=== PATIENT | male | born 1985 | race Caucasian/White ===

== ENCOUNTER 2023-05-22 15:09 | Emergency (ER) | payer SELFPAY ==
--- NOTE | 2023-05-22 15:17 | ERPHSYRPT ---
- History of Present Illness Time Seen by Provider: 05/22/23 15:16 Source: patient, family Exam Limitations: no limitations Physician History: This is a right-handed 37-year-old white male patient who was using a knife to cut a wire when it slipped causing him to have a 1.5 cm superficial flap laceration ulnar side distal laceration. Patient states that his tetanus status is up-to-date. Occurred: just prior to arrival Method of Injury: other (Accidentally cut himself with a knife) Severity of Pain-Max: mild Severity of Pain-Current: mild Extremities Pain Location: 2nd finger: left (Distal ulnar side superficial flap laceration) Modifying Factors: Improves With: movement Associated Symptoms: none Allergies/Adverse Reactions: Penicillins Allergy (Verified 05/22/23 15:13) Travel Risk - International Travel Have you traveled outside of the country in past 3 weeks: No - Coronavirus Screening Are you exhibiting any of the following symptoms?: No Close contact with a COVID-19 positive Pt in past 14-21 Days: No - Review of Systems Constitutional: No Symptoms Eyes: No Symptoms Ears, Nose, & Throat: No Symptoms Respiratory: No Symptoms Cardiac: No Symptoms Abdominal/Gastrointestinal: No Symptoms Genitourinary Symptoms: No Symptoms Musculoskeletal: No Symptoms Skin: Other (Superficial distal ulnar side left second digit flap laceration) Neurological: No Symptoms Psychological: No Symptoms Endocrine: No Symptoms Hematologic/Lymphatic: No Symptoms Immunological/Allergic: No Symptoms All Other Systems: Reviewed and Negative - Past Medical History Pertinent Past Medical History: No - Past Surgical History Past Surgical History: No - Nursing Vital Signs Nursing Vital Signs: Initial Vital Signs Temperature 97.5 F 05/22/23 15:14 Pulse Rate 90 05/22/23 15:14 Respiratory Rate 18 05/22/23 15:14 Blood Pressure 131/82 05/22/23 15:14 O2 Sat by Pulse Oximetry 97 05/22/23 15:14 Pain Scale Pain Intensity 0 - Physical Exam General Appearance: no apparent distress, alert Eyes, Ears, Nose, Throat Exam: normal ENT inspection, moist mucous membranes Neck Exam: normal inspection, non-tender, supple, full range of motion Cardiovascular/Respiratory Exam: chest non-tender, no respiratory distress Abdominal Exam: non-tender Back Exam: normal inspection, normal range of motion, No CVA tenderness, No vertebral tenderness Shoulder Exam: normal inspection, non-tender, no evidence of injury, normal ROM Elbow/Forearm Exam: normal inspection, non-tender, no evidence of injury, normal ROM Wrist Exam: normal inspection, non-tender, no evidence of injury, normal ROM Hand Exam: normal ROM, laceration (Superficial, distal left index finger flap laceration with mild oozing from the skin. Neurovascularly intact, tendons intact) Neuro/Tendon Exam: normal sensation, normal motor functions, normal tendon functions, responds to pain, no evidence tendon injury Mental Status Exam: alert, oriented x 3, cooperative Skin Exam: laceration (Laceration second digit left hand. See above hand exam section for description) SpO2 Interpretation: normal O2 Delivery: Room Air Procedures - Laceration/Wound Repair Left Distal Finger Time of Procedure: 15:25 Wound Location: Left, hand Wound Length (cm): 1.5 Wound's Depth, Shape: superficial, linear, flap Wound Explored: clean (Wound explored to the base in a bloodless field. No foreign body noted) Irrigated: Yes Hibiclens Prep: Yes Wound Repaired With: Steri-strips, Dermabond Progress: 05/22/23 15:38 Patient tolerated the procedure well. After laceration repair, a pressure dressing and finger splint was placed. - Course Nursing assessment & vital signs reviewed: Yes Ordered Tests: Medication Summary Discontinued Medications Generic Name Dose Route Start Last Admin Trade Name Liam PRN Reason Stop Dose Admin Cephalexin HCl 500 mg 05/22/23 15:32 Cephalexin Mh500 Mg Capsule PO 05/22/23 15:33 STAT ONE - Progress Progress: improved, re-examined Progress Note: 05/22/23 15:38 This patient's medical issue is 1 of low complexity. The level of complexity and the workup performed is based on review of the patient's past medical history, review of the patient's medication list, history of present illness and physical findings on examination. No laboratory radiographic studies are necessary. Patient's tetanus status is up-to-date so this is not necessary to provide the patient with an additional injection of Adacel Counseled pt/family regarding: diagnosis Medical Desision Making - Independent Historian Additional History obtained from: Spouse - Diagnostic Testing Diagnostic test were ordered, analyzed, and reviewed by me: No - Risk of complications Minimal Risk: Minimal risk of morbidity - Departure Departure Disposition: Home Clinical Impression: Laceration of left index finger Condition: Stable Critical Care Time: No Referrals: DOCTOR,NO FAMILY [Primary Care Provider] - Follow up/PCP as directed Additional Instructions: Keep the left finger and laceration repair site in the pressure dressing and in the finger splint. On the morning of 05/24/2023, you may remove the finger splint and the pressure dressing but leave the Steri-Strips in place until they fall off on their own in the next 5 to 7 days. On the morning of 05/24/2023, you may rinse the site off with soap and water. Do not rub. You may blot dry or use a hairmasters manager to dry the site. Take your antibiotics as prescribed. You may trim the Steri-Strips periodically as they curl up. Do not pull them off. Prescriptions: Cephalexin Mh 500 mg [Keflex 500 mg] 500 mg PO TID #15 cap
[2023-05-22 15:22] VITALS: TEMP 97.5; O2SAT 97
[2023-05-22] MEDS ORDERED: KEFLEX 500 MG ONE (15:35)
[2023-05-22] MEDS: KEFLEX 500 MG PO ONE (15:37)
[2023-05-22 15:57] VITALS: BP 104/75; PULSE 80; RESP 16
== END 2023-05-22 15:57 | disposition home or self-care (01) ==
LOC: ED 15:09
DX: S61.211A Laceration without foreign body of left index finger without damage to nail, initial encounter (principal); W26.0XXA Contact with knife, initial encounter
CPT/HCPCS: 12001; 99281; A9270-GY

== ENCOUNTER 2023-06-24 23:29 | Emergency (ER) | payer SELFPAY ==
[2023-06-24 23:41] VITALS: TEMP 97.2; O2SAT 99
--- NOTE | 2023-06-25 00:10 | ERPHSYRPT ---
- History of Present Illness Time Seen by Provider: 06/24/23 23:38 Source: patient Exam Limitations: no limitations Patient Subjective Stated Complaint: Headache Triage Nursing Assessment: Patient ambulated back to ED and transferred self to bed. Patient A+O X 3. Patient's skin pink, warm and dry. Patient complains of headache on and off for 2 weeks. Patient states his head hurts in the top and back of head 10/10. Patient denies any recent trauma or injuries. Patient denies N/V or dizziness. Patient is occasionally light sensitive. Patient states he has bad teeth and it may be that. Right side of face noted to be swollen. Patient has no dental pain. Physician History: 37 years old healthy male presented in the ER with almost 2 weeks history of off-and-on headache. Patient reports moderate to severe sharp headache with no significant aggravating or relieving factors, mostly frontal but sometimes occipital with no focal numbness tingling or weakness. Denies any visual disturbance or difficulty speech. Patient denies any neck pain, fever or chills. No history of headaches in the past. Partial relief with taking Tylenol or ibuprofen at home. Last intake of ibuprofen was almost 6 hours ago and currently rates 10/10 intensity frontal headache. Allergies/Adverse Reactions: Penicillins Allergy (Verified 06/24/23 23:33) Hx Tetanus, Diphtheria Vaccination/Date Given: Yes Hx Influenza Vaccination/Date Given: No Hx Pneumococcal Vaccination/Date Given: No Immunizations Up to Date: Yes Travel Risk - International Travel Have you traveled outside of the country in past 3 weeks: No - Emerging Infectious Disease Are you exhibiting symptoms associated with any current EIDs: No - Review of Systems Constitutional: No Symptoms Eyes: No Symptoms Ears, Nose, & Throat: No Symptoms Respiratory: No Symptoms Cardiac: No Symptoms Abdominal/Gastrointestinal: No Symptoms Genitourinary Symptoms: No Symptoms Musculoskeletal: No Symptoms Neurological: Headache Psychological: No Symptoms Endocrine: No Symptoms Hematologic/Lymphatic: No Symptoms Immunological/Allergic: No Symptoms - Past Medical History Pertinent Past Medical History: No Neurological History: No Pertinent History ENT History: No Pertinent History Cardiac History: No Pertinent History Respiratory History: Asthma Endocrine Medical History: No Pertinent History Musculoskeletal History: No Pertinent History GI Medical History: No Pertinent History History: No Pertinent History Psycho-Social History: No Pertinent History Male Reproductive Disorders: No Pertinent History - Past Surgical History Past Surgical History: No Neuro Surgical History: No Pertinent History Cardiac: No Pertinent History Respiratory: No Pertinent History Gastrointestinal: No Pertinent History Genitourinary: No Pertinent History Musculoskeletal: No Pertinent History Male Surgical History: No Pertinent History - Social History Smoking Status: Current every day smoker How long have you smoked: years Exposure to second hand smoke: No Drug Use: none Patient Lives Alone: No - Nursing Vital Signs Nursing Vital Signs: Initial Vital Signs Temperature 97.2 F 06/24/23 23:33 Pulse Rate 70 06/24/23 23:33 Respiratory Rate 20 06/24/23 23:33 Blood Pressure 130/86 06/24/23 23:33 O2 Sat by Pulse Oximetry 99 06/24/23 23:33 Pain Scale Pain Intensity 10 - Physical Exam General Appearance: no apparent distress, alert Eye Exam: PERRL/EOMI Ears, Nose, Throat Exam: normal ENT inspection, TMs normal, pharynx normal, moist mucous membranes Neck Exam: normal inspection, non-tender, supple, full range of motion, No meningismus Respiratory Exam: normal breath sounds, lungs clear, No chest tenderness Cardiovascular Exam: regular rate/rhythm, normal heart sounds Gastrointestinal/Abdominal Exam: soft, No tenderness Extremity Exam: normal inspection Mental Status Exam: alert, oriented x 3, cooperative manufacturing systems engineer Exam: normal hearing, normal speech, PERRL Coordination/Gait Exam: normal finger to nose, normal gait, normal cerebellar function, negative Romberg's sign Motor/Sensory Exam: no motor deficit, no sensory deficit, no pronator drift, negative Babinski's sign DTR Exam: bicep (R): 2+, bicep (L): 2+, knee (R): 2+, knee (L): 2+ Skin Exam: normal color SpO2 Interpretation: normal SpO2: 99 O2 Delivery: Room Air Ordered Tests: Medication Summary Discontinued Medications Generic Name Dose Route Start Last Admin Trade Name Freq PRN Reason Stop Dose Admin Acetaminophen 975 mg 06/24/23 23:58 06/25/23 00:19 Acetaminophen 325 Mg Tablet PO 06/24/23 23:59 975 mg STAT ONE Administration Acetaminophen Confirm 06/25/23 00:16 Acetaminophen 325 Mg Tablet Administered 06/25/23 00:17 Dose 975 mg .ROUTE .STK-MED ONE Diphenhydramine HCl 50 mg 06/24/23 23:58 06/25/23 00:20 Diphenhydramine Hcl 50 Mg/Ml Vial IM 06/24/23 23:59 50 mg STAT ONE Administration Diphenhydramine HCl Confirm 06/25/23 00:15 Diphenhydramine Hcl 50 Mg/Ml Vial Administered 06/25/23 00:16 Dose 50 mg .ROUTE .STK-MED ONE Ketorolac Tromethamine 30 mg 06/24/23 23:58 06/25/23 00:19 Ketorolac Tromethamine 30 Mg/Ml Inj IM 06/24/23 23:59 30 mg STAT ONE Administration Ketorolac Tromethamine Confirm 06/25/23 00:15 Ketorolac Tromethamine 30 Mg/Ml Inj Administered 06/25/23 00:16 Dose 30 mg .ROUTE .STK-MED ONE Metoclopramide HCl 10 mg 06/24/23 23:58 06/25/23 00:19 Metoclopramide Hcl 10 Mg/2 Ml Vial IM 06/24/23 23:59 10 mg STAT ONE Administration Metoclopramide HCl Confirm 06/25/23 00:16 Metoclopramide Hcl 10 Mg/2 Ml Vial Administered 06/25/23 00:17 Dose 10 mg .ROUTE .STK-MED ONE - Progress Progress: improved, re-examined Air Movement: good Progress Note: 06/25/23 01:06 37-year-old is evaluated for headache off and on for 2 weeks with no previous history of migraines. Patient has nonfocal neuroexam throughout stay in the ER. He has no signs of meningismus. Given Toradol Reglan and Benadryl, on reevaluation his headache is resolved. I have also obtained CT head with this new onset headache for 2 weeks and is negative for any acute intra-cranial findings. Patient remained symptom-free. He might have a new onset migraine. Patient does not have any new triggering factor which is causing him to have headaches. I have recommended outpatient follow-up with PCP and may need referral for neurology and to take Tylenol/ibuprofen as needed. Discussed signs symptoms of worsening needing return to ER which she seems understanding. Stable for discharge. Blood Culture(s) Obtained: No Antibiotics given: No Counseled pt/family regarding: diagnosis, need for follow-up, rad results Medical Desision Making - Risk of complications The pt has a mod risk of morbidity or mortality based on: Need for prescription drug management - Departure Departure Disposition: Home Clinical Impression: Headache Condition: Stable Critical Care Time: No Referrals: DOCTOR,NO FAMILY [Primary Care Provider] - Follow up/PCP as directed KOREY URRUTIA MD [ACTIVE STAFF] - Follow up with PCP 1 day (Call for appointment for reevaluation) Instructions: Headache, Adult (DC) Additional Instructions: Take Tylenol/ibuprofen as needed for pain. Follow-up with primary care for reevaluation and may need referral for neurology for further evaluation if continues to have headaches. Return to ER for intractable headache, pain in the neck/difficulty movements of neck, numbness tingling focal weakness or visual disturbance or if develop fever chills etc. Prescriptions: Ibuprofen 600 mg PO Q6HPRN PRN 10 Days #20 tablet PRN Reason: Pain
[2023-06-25] MEDS ORDERED: TORAdol 30 mg Injection ONE (00:15)
[2023-06-25] MEDS ORDERED: BENADRYL 50 MG/ML ONE (00:15)
[2023-06-25] MEDS ORDERED: Reglan 10 MG/2 ML ONE (00:16)
[2023-06-25] MEDS ORDERED: TYLENOL 325 MG ONE (00:16)
[2023-06-25] MEDS: TYLENOL 325 MG PO ONE (00:19)
[2023-06-25] MEDS: Reglan 10 MG/2 ML IM ONE (00:19)
[2023-06-25] MEDS: TORAdol 30 mg Injection IM ONE (00:19)
[2023-06-25] MEDS: BENADRYL 50 MG/ML IM ONE (00:20)
--- NOTE | 2023-06-25 01:00 | XRAY ---
CLINICAL HISTORY: headache COMPARISON: None. TECHNIQUE: Axial noncontrast CT scan of the brain was performed from the skull base to the high parietal region. FINDINGS: The visualized brain parenchyma shows normal appearance. Jackson-white matter differentiation is maintained. No midline shifts or deformity. No intracerebral or extra axial hematoma. Normal size and configuration of the cerebral ventricles. Normal CT appearance of the posterior fossa structures namely the cerebellar hemispheres, brainstem and cerebellar peduncles. The IACs are unremarkable. The cerebello-pontine angles are clear. The osseous structures in the skull base are unremarkable. No definite calvarium fractures. The scanned paranasal sinuses are clear. IMPRESSION: The non-enhanced CT study for the brain is unremarkable. Electronically Signed by: Benson Hernandez MD. (06/25/2023 00:56:40 EDT)
[2023-06-25 01:20] VITALS: BP 126/60; PULSE 68; RESP 17
== END 2023-06-25 01:15 | disposition home or self-care (01) ==
LOC: ED 23:29
DX: R51.9 Headache, unspecified (principal); Z72.0 Tobacco use
CPT/HCPCS: 70450; 96372; 99284; J1200; J1885; A9270-GY

== ENCOUNTER 2023-09-10 08:26 | Emergency (ER) | payer MEDICAID ==
[2023-09-10 08:40] VITALS: RESP 18; TEMP 98.7
--- NOTE | 2023-09-10 08:57 | ERPHSYRPT ---
- History of Present Illness Time Seen by Provider: 09/10/23 08:33 Source: patient Exam Limitations: no limitations Patient Subjective Stated Complaint: Patient states he fell out of a [employer] on Wednesday. Patient indicates that he was seen at [facility] ER and told that he sprained his foot/ankle. Patient indiates the pain in his right foot is worse and is here for re-evaluation. Triage Nursing Assessment: Patient ambulated back to ER wearing a walking boot to his right foot/ankle. He is alert and oriented. Walking boot removed. No skin discoloration noted to area of pain. Physician History: Patient is here with right ankle and right foot pain. Patient states that he has pain in his Achilles tendon as well. Patient states that 2 days ago he fell out of a [employer] truck. States that he rolled both of his ankles. States that his left ankle has continued to improve. However he continues to have right ankle pain. Patient was seen at [facility] 2 days ago. This was after the incident. At that point in time he states that he had negative x- rays and was told to follow-up with orthopedic surgery. Patient did not follow- up and instead returns to the emergency department. We [place] [facility] He did not bring any x-ray report or ER discharge paperwork with him. He has been wearing a walking boot with some improvement. However he would like a reevaluation. Allergies/Adverse Reactions: Penicillins Allergy (Verified 09/10/23 08:31) Home Medications: Hydrocodone/Acetaminophen [Hydrocodone-Acetamin 5-325 mg] 1 tab PO Q6HPRN PRN 09/10/23 [History] Hx Tetanus, Diphtheria Vaccination/Date Given: Yes Hx Influenza Vaccination/Date Given: No Hx Pneumococcal Vaccination/Date Given: No Travel Risk - International Travel Have you traveled outside of the country in past 3 weeks: No - Emerging Infectious Disease Are you exhibiting symptoms associated with any current EIDs: No - Past Medical History Pertinent Past Medical History: No Neurological History: No Pertinent History ENT History: No Pertinent History Cardiac History: No Pertinent History Respiratory History: Asthma Endocrine Medical History: No Pertinent History Musculoskeletal History: No Pertinent History GI Medical History: No Pertinent History History: No Pertinent History Psycho-Social History: No Pertinent History Male Reproductive Disorders: No Pertinent History - Past Surgical History Past Surgical History: No Neuro Surgical History: No Pertinent History Cardiac: No Pertinent History Respiratory: No Pertinent History Gastrointestinal: No Pertinent History Genitourinary: No Pertinent History Musculoskeletal: No Pertinent History Male Surgical History: No Pertinent History - Social History Smoking Status: Current every day smoker How long have you smoked: 13 Y.O. Exposure to second hand smoke: No Drug Use: none Patient Lives Alone: No - Social Determinants of Health Will the patient participate in the screening: Declined to provide - Nursing Vital Signs Nursing Vital Signs: Initial Vital Signs Pulse Rate 80 09/10/23 08:30 Respiratory Rate 18 09/10/23 08:30 Blood Pressure 115/86 09/10/23 08:30 O2 Sat by Pulse Oximetry 98 09/10/23 08:30 Pain Scale Pain Intensity 8 - Physical Exam SpO2 Interpretation: normal SpO2: 99 Comments: 09/10/23 08:53 Review of Systems Constitutional: Negative for fever. HENT: Negative for congestion. Respiratory: Negative for shortness of breath. Cardiovascular: Negative for chest pain. Gastrointestinal: Negative for abdominal pain. Genitourinary: Negative for dysuria. Musculoskeletal: Negative for back pain. Right ankle, right foot pain Skin: Negative for rash. Neurological: Negative for headaches. Psychiatric/Behavioral: Negative for behavioral problems. All other systems reviewed and are negative. Physical Exam Vitals signs and nursing note reviewed. Constitutional: Appearance: Patient is well-developed. HENT: Head: Normocephalic and atraumatic. Eyes: Conjunctiva/sclera: Conjunctivae normal. Neck: Musculoskeletal: Normal range of motion. Trachea: No tracheal deviation. Cardiovascular: Rate and Rhythm: Normal rate. Pulmonary: Effort: Pulmonary effort is normal. No respiratory distress. Abdominal: Palpations: Abdomen is soft. Musculoskeletal: General: No deformity. No obvious deformity, sensation intact, 2+ capillary refill, 2 point tactile discrimination intact. 5 out of 5 strength. Full range of motion with some pain. Compartments are soft, nontender. Overlying skin shows no tenting, bruising, ecchymosis. Patient has a negative Mcneil's test. Skin: General: Skin is warm and dry. Neurological/ Psychiatric: Mental Status: Mental status, behavior, interaction with environment is appropriate for patient's age and condition - Course Nursing assessment & vital signs reviewed: Yes Ordered Tests: Active Orders 24 hr Category Date Time Status ANKLE (3 VIEWS) Stat Exams 09/10/23 08:48 Completed FOOT (MINIMUM 3 VIEWS) Stat Exams 09/10/23 08:47 Completed - Progress Progress: unchanged, improved Progress Note: 09/10/23 08:56 Differential diagnosis includes Achilles tendon rupture, partial Achilles tendon rupture, fracture, ankle sprain, other tendon rupture or injury Plan to start with an x-ray today. Patient has a negative Mcneil's test. However still may have a partial Achilles tendon rupture based on his history and reported area of pain. Discussed with DrJude: Shashi Counseled pt/family regarding: diagnosis, need for follow-up, rad results - Departure Departure Disposition: Home Clinical Impression: Right ankle injury Condition: Stable Critical Care Time: No Referrals: DOCTOR,NO FAMILY [Primary Care Provider] - Follow up/PCP as directed Instructions: Foot Sprain (DC)
--- NOTE | 2023-09-10 09:27 | XRAY ---
Indication: Pain following injury. Comparison: None 3 view right ankle demonstrates tiny posterior heel spur and mild anterior lateral soft tissue swelling. No other bony, articular, or soft tissue abnormalities.
--- NOTE | 2023-09-10 09:29 | XRAY ---
Indication: Pain following injury. Comparison: None 3 nonweightbearing views right foot demonstrates tiny posterior heel spur. No other bony, articular, or soft tissue abnormalities.
[2023-09-10 09:35] VITALS: BP 127/88; PULSE 86
[2023-09-10 09:41] VITALS: O2SAT 99
== END 2023-09-10 09:48 | disposition home or self-care (01) ==
LOC: ED 08:26
DX: S99.911A Unspecified injury of right ankle, initial encounter (principal); V89.9XXA Person injured in unspecified vehicle accident, initial encounter; Z79.891 Long term (current) use of opiate analgesic; Z72.0 Tobacco use
CPT/HCPCS: 73610; 73630; 99283

== ENCOUNTER 2024-04-14 16:51 | Emergency (ER) | payer BC, MEDICAID ==
--- NOTE | 2024-04-14 17:00 | ERPHSYRPT ---
- History of Present Illness Time Seen by Provider: 04/14/24 17:00 Source: patient Exam Limitations: no limitations Physician History: This is a 38-year-old white male patient who has known history of generalized poor dentition and presents to the emergency department with swelling of his left cheek under his eye. He knew he had some tenderness in the left upper molars but he did not notice the swelling until he woke up this morning. He is concerned that there may be an abscess present. Patient is allergic to penicillin and he usually receives clindamycin. He is not short of breath. He has no difficulty swallowing. He has no visual changes. Timing/Duration: abrupt onset Associated Symptoms: facial pain/swelling (Left cheek), tooth pain (Left upper molars), No cough, No fever, No change in hearing, No neck pain, No swollen glands, No voice change Allergies/Adverse Reactions: Penicillins Allergy (Verified 04/14/24 16:58) Hx Tetanus, Diphtheria Vaccination/Date Given: Yes Hx Influenza Vaccination/Date Given: No Hx Pneumococcal Vaccination/Date Given: No Travel Risk - International Travel Have you traveled outside of the country in past 3 weeks: No - Emerging Infectious Disease Are you exhibiting symptoms associated with any current EIDs: No - Review of Systems Constitutional: No Symptoms Eyes: No Symptoms Ears, Nose, & Throat: Other (Left upper molar dental pain, left cheek swelling) Respiratory: No Symptoms Cardiac: No Symptoms Abdominal/Gastrointestinal: No Symptoms Genitourinary Symptoms: No Symptoms Musculoskeletal: No Symptoms Skin: No Symptoms Neurological: No Symptoms Psychological: No Symptoms Endocrine: No Symptoms Hematologic/Lymphatic: No Symptoms Immunological/Allergic: No Symptoms All Other Systems: Reviewed and Negative - Past Medical History Pertinent Past Medical History: No Neurological History: No Pertinent History ENT History: No Pertinent History Cardiac History: No Pertinent History Respiratory History: Asthma Endocrine Medical History: No Pertinent History Musculoskeletal History: No Pertinent History GI Medical History: No Pertinent History History: No Pertinent History Psycho-Social History: No Pertinent History Male Reproductive Disorders: No Pertinent History - Past Surgical History Past Surgical History: No Neuro Surgical History: No Pertinent History Cardiac: No Pertinent History Respiratory: No Pertinent History Gastrointestinal: No Pertinent History Genitourinary: No Pertinent History Musculoskeletal: No Pertinent History Male Surgical History: No Pertinent History - Social History Smoking Status: Current every day smoker How long have you smoked: 12 Y.O. Exposure to second hand smoke: No Drug Use: none Patient Lives Alone: No - Social Determinants of Health Will the patient participate in the screening: Declined to provide - Nursing Vital Signs Nursing Vital Signs: Initial Vital Signs Temperature 98 F 04/14/24 16:59 Pulse Rate 89 04/14/24 16:59 Respiratory Rate 18 04/14/24 16:59 Blood Pressure 120/81 04/14/24 16:59 O2 Sat by Pulse Oximetry 98 04/14/24 16:59 Pain Scale Pain Intensity 5 - Physical Exam General Appearance: no apparent distress, alert, anxiety Eye Exam: bilateral eye: normal inspection, PERRL, EOMI Ear Exam: bilateral ear: auricle normal, canal normal, TM normal Nasal Exam: normal inspection Throat Exam: dental tenderness (Generalized poor dentition with left upper molar pain. 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, nml cerebellar function, nml station & gait, sensation nml Skin Exam: normal color, warm, dry SpO2 Interpretation: normal O2 Delivery: Room Air - Course Nursing assessment & vital signs reviewed: Yes Ordered Tests: Active Orders 24 hr Category Date Time Status FACIAL BONES WO CONTRAST [CT] Stat Exams 04/14/24 17:18 Taken - Progress Progress: unchanged Progress Note: 04/14/24 17:59 My medical decision making and the assignment of low complexity of this patient's medical issue today is based on review of the patient's past medical history, review of the patient's medication list, reviewed patient drug allergy list, history present dose and physical findings on examination. The workup in this patient includes CT scan of the face. The patient was offered this study or treatment with antibiotics and steroids first and if his symptoms worsened he could return to the emergency department and then we would perform a CT scan of the face at that time. He has opted for CT scan of the face at this time to evaluate for the possibility of there being an abscess. Differential diagnosis includes but is not limited to dental infection with abscess, dental infection without abscess, sinus infection/abscess 04/14/24 18:[address] scan of the face was interpreted by the radiologist and I reviewed the interpretation. The impression states there is minimal left facial soft tissue swelling. There is mild bilateral paranasal sinus disease. There is multiple dental caries. Otherwise negative facial bones. There is no pathologic adenopathy Counseled pt/family regarding: diagnosis, need for follow-up, rad results Medical Desision Making - Diagnostic Testing Diagnostic test were ordered, analyzed, and reviewed by me: Yes Radiological Interpretation: Reviewed by me, Teleradiologist Report - Risk of complications The pt has a mod risk of morbidity or mortality based on: Need for prescription drug management - Departure Departure Disposition: Home Clinical Impression: Infected dental caries, Left facial swelling Condition: Stable Critical Care Time: No Referrals: DOCTOR,NO FAMILY [Primary Care Provider] - Follow up/PCP as directed Additional Instructions: Take your antibiotics and steroids as prescribed. Call a dentist to make arrangements for an appointment for definitive care. Prescriptions: Clindamycin HCl 150 mg [Cleocin 150 mg Capsule] 2 cap PO QID #56 cap Prednisone 10 mg [Deltasone 10 mg] 10 mg PO TID #6 tablet
[2024-04-14 17:06] VITALS: RESP 18; TEMP 98
[2024-04-14 18:23] VITALS: O2SAT 99
[2024-04-14] MEDS ORDERED: CLEOCIN 150 MG CAPSULE ONE (18:48)
[2024-04-14] MEDS ORDERED: DELTASONE 20 MG ONE (18:48)
[2024-04-14] MEDS: DELTASONE 20 MG PO ONE (18:49)
[2024-04-14] MEDS: CLEOCIN 150 MG CAPSULE PO ONE (18:49)
[2024-04-14] MEDS ORDERED: PERCOCET TABLET 5/325MG ONE (18:49)
[2024-04-14] MEDS: PERCOCET TABLET 5/325MG PO STA (18:50)
[2024-04-14 19:02] VITALS: BP 101/72; PULSE 80
--- NOTE | 2024-04-14 22:20 | XRAY ---
Indication: Left maxilla/cheek swelling. Multiple contiguous axial images obtained through the facial bones without contrast. Sagittal and coronal reformatted images obtained. Comparison: None Minimal left facial soft tissue swelling. No focal solid/cystic soft tissue mass or walled off fluid collection. Mild mucosal thickening both ethmoid and lesser degree both maxillary sinuses without fluid level layering. These passages and oropharynx unremarkable. No acute fracture, suspicious bone lesions, or radiopaque foreign body. Multiple bilateral dental caries. TMJ bilaterally symmetric. Visualized noncontrasted soft tissues demonstrates multiple centimeter/subcentimeter cervical and submandibular lymph nodes bilaterally, none pathologically enlarged. Base of brain unremarkable. Impression: Minimal left facial soft tissue swelling, multiple small nonpathologic cervical/submandibular lymph nodes, multiple bilateral dental caries, and paranasal sinuses disease.
== END 2024-04-14 19:02 | disposition home or self-care (01) ==
LOC: ED 16:51
DX: K04.7 Periapical abscess without sinus (principal); K02.9 Dental caries, unspecified; R22.0 Localized swelling, mass and lump, head; Z79.52 Long term (current) use of systemic steroids; Z79.899 Other long term (current) drug therapy; Z72.0 Tobacco use
CPT/HCPCS: 70486; 99284; 99285; A9270-GY

== ENCOUNTER 2024-04-25 02:16 | Emergency (ER) | payer BC ==
[2024-04-25 02:27] VITALS: TEMP 98.2
--- NOTE | 2024-04-25 02:59 | ERPHSYRPT ---
- History of Present Illness Time Seen by Provider: 04/25/24 02:40 Source: patient Exam Limitations: no limitations Patient Subjective Stated Complaint: Headache, I feel like someone is squeezing it. I was here on 04/13/24 for a sinus/tooth infection. I just finished those meds 2 days ago. Triage Nursing Assessment: Pt ambulated into ER without diff. Pt c/o headache to the top and back of his head, states, "it feels like someone is squeezing it". Pt is alert and oriented x4, states, "I woke up with this around 3pm today". Pt has some dizziness from time to time. Pt denies any chest pain or sob. Pt went to work at 6pm today but states, "I had to work half my shift because they're strict on attendance policy, before I could leave to come and get checked out". Pt drove himself here. Pt was seen here on 04/14/24 for dental pain/dental caries/paranasal sinus disease, and treated with antibiotics and steroid. Physician History: 38-year-old male presents to our ED for evaluation of a headache. Patient sta jessika he feels like someone is "squeezing my head". Patient advises that he had a facial CT on the in our ED. Patient was diagnosed with a sinus infection and treated with antibiotics and steroids. Patient's headache today started approximately 3 PM. Headache associated with slight dizziness. No associated chest pain or shortness of breath. No nausea vomiting or diaphoresis. Patient went to work in spite of his symptoms. However patient left early. No trauma. No fever. No neck pain no photophobia. No meningeal signs. No change in vision. No numbness tingling or weakness. Patient otherwise feels well. He voices no other complaints or concerns at this time. Portions of this note were created with voice recognition technology. There may be grammatical, spelling, punctuation or sound alike errors Timing/Duration: today Severity: moderate Modifying Factors: Improves With: nothing Associated Symptoms: denies symptoms Allergies/Adverse Reactions: Penicillins Allergy (Verified 04/25/24 02:27) Home Medications: No Reportable Medications [No Reported Medications] 04/25/24 [History] Hx Tetanus, Diphtheria Vaccination/Date Given: Yes Hx Influenza Vaccination/Date Given: No Hx Pneumococcal Vaccination/Date Given: No Travel Risk - International Travel Have you traveled outside of the country in past 3 weeks: No - Emerging Infectious Disease Are you exhibiting symptoms associated with any current EIDs: Yes Symptoms: Headaches/Body Aches/ - Review of Systems Constitutional: No Symptoms, No Fever, No Chills Eyes: No Symptoms Ears, Nose, & Throat: No Symptoms Respiratory: No Symptoms, No Cough, No Dyspnea Cardiac: No Symptoms, No Chest Pain, No Edema, No Syncope Abdominal/Gastrointestinal: No Symptoms, No Abdominal Pain, No Nausea, No Vomiting, No Diarrhea Genitourinary Symptoms: No Symptoms, No Dysuria Musculoskeletal: No Symptoms, No Back Pain, No Neck Pain Skin: No Symptoms, No Rash Neurological: No Symptoms, No Dizziness, No Focal Weakness, No Sensory Changes Psychological: No Symptoms Endocrine: No Symptoms Hematologic/Lymphatic: No Symptoms Immunological/Allergic: No Symptoms All Other Systems: Reviewed and Negative - Past Medical History Pertinent Past Medical History: Yes Neurological History: No Pertinent History ENT History: No Pertinent History Cardiac History: No Pertinent History Respiratory History: Asthma Endocrine Medical History: Diabetes Type II Musculoskeletal History: No Pertinent History GI Medical History: No Pertinent History History: No Pertinent History Psycho-Social History: No Pertinent History Male Reproductive Disorders: No Pertinent History - Past Surgical History Past Surgical History: No Neuro Surgical History: No Pertinent History Cardiac: No Pertinent History Respiratory: No Pertinent History Gastrointestinal: No Pertinent History Genitourinary: No Pertinent History Musculoskeletal: No Pertinent History Male Surgical History: No Pertinent History - Social History Smoking Status: Former smoker How long have you smoked: 12 Y.O. Exposure to second hand smoke: No Drug Use: none Patient Lives Alone: No - Social Determinants of Health Will the patient participate in the screening: Yes Do you worry about a steady place to live?: No Do you have any problems with any of the following?: No known problems In the past 12 months,have you had to go without utilities?: No Transportation Issues: No Has anyone in your support network made you feel unsafe?: No Have you or anyone in your house had to go without enough: No - Nursing Vital Signs Nursing Vital Signs: Initial Vital Signs Temperature 98.2 F 04/25/24 02:25 Pulse Rate 73 04/25/24 02:25 Respiratory Rate 18 04/25/24 02:25 Blood Pressure 135/87 04/25/24 02:25 O2 Sat by Pulse Oximetry 97 04/25/24 02:25 Pain Scale Pain Intensity 2 - Physical Exam General Appearance: no apparent distress, alert Eye Exam: PERRL/EOMI, eyes nml inspection Ears, Nose, Throat Exam: normal ENT inspection, moist mucous membranes Neck Exam: normal inspection, non-tender, supple, full range of motion Respiratory Exam: normal breath sounds, lungs clear, airway intact, No respiratory distress Cardiovascular Exam: regular rate/rhythm, normal heart sounds, normal peripheral pulses Gastrointestinal/Abdomen Exam: soft, normal bowel sounds, No tenderness, No mass Back Exam: normal inspection, normal range of motion, No CVA tenderness, No vertebral tenderness Extremity Exam: normal inspection, normal range of motion, pelvis stable Neurologic Exam: alert, oriented x 3, cooperative, normal mood/affect, sensation nml, No motor deficits Skin Exam: normal color, warm, dry, No rash Lymphatic Exam: No adenopathy SpO2 Interpretation: normal SpO2: 97 O2 Delivery: Room Air - Course Nursing assessment & vital signs reviewed: Yes EKG Interpreted by Me: RATE (69), Sinus Rhythm, NORMAL AXIS, NORMAL INTERVALS, NORMAL QRS - CT Exams Head CT Interpretation: Tele-radiologist Report (No acute abnormality observed) Ordered Tests: Active Orders 24 hr Category Date Time Status IV Insertion STAT Care 04/25/24 02:49 Active HEAD WITHOUT CONTRAST [CT] Stat Exams 04/25/24 02:48 Taken CBC W DIFF Stat Lab 04/25/24 03:20 Completed CMP Stat Lab 04/25/24 03:20 Completed Medication Summary Discontinued Medications Generic Name Dose Route Start Last Admin Trade Name Liam PRN Reason Stop Dose Admin Sodium Chloride 1,000 mls @ 999 mls/hr 04/25/24 02:50 04/25/24 04:54 Sodium Chloride 0.9% 1000 Ml IV 04/25/24 03:50 Infused .Q1H1M STA Infusion Sodium Chloride Confirm 04/25/24 03:04 Sodium Chloride 0.9% 1000 Ml Administered 04/25/24 03:05 Dose 1,000 mls @ ud .ROUTE .STK-MED ONE Ketorolac Tromethamine 30 mg 04/25/24 02:49 04/25/24 03:05 Ketorolac Tromethamine 30 Mg/Ml Inj IV 04/25/24 02:50 30 mg STAT ONE Administration Ketorolac Tromethamine Confirm 04/25/24 03:03 Ketorolac Tromethamine 30 Mg/Ml Inj Administered 04/25/24 03:04 Dose 30 mg .ROUTE .STK-MED ONE Prochlorperazine Edisylate 10 mg 04/25/24 02:49 04/25/24 03:05 Prochlorperazine Edisylate 10 Mg/2 Ml Vial IV 04/25/24 02:50 10 mg STAT ONE Administration Prochlorperazine Edisylate Confirm 04/25/24 03:03 Prochlorperazine Edisylate 10 Mg/2 Ml Vial Administered 04/25/24 03:04 Dose 10 mg .ROUTE .[facility] ONE Lab/Rad Data: Laboratory Result Diagrams 04/25/24 03:20 04/25/24 03:20 Laboratory Results 04/25/24 04/25/24 Range/Units 03:20 03:20 WBC 11.5 H (4.23-9.07) x10^3/uL RBC 4.50 L (4.63-6.08) x10^6/uL Hgb 14.9 (13.7-17.5) g/dL Hct 41.9 (40.1-51.0) % MCV 93.1 H (79.0-92.2) fL MCH 33.1 H (25.7-32.2) pg MCHC 35.6 (32.3-36.5) g/dL RDW 11.5 L (11.6-14.4) % Plt Count 241 (163-337) x10^3/uL MPV 10.5 (9.4-12.4) fL Gran % 77.3 H (34.0-67.9) % Immature Gran % (Auto) 0.4 (0.001-0.429) % Nucleat RBC Rel Count 0.0 (0.00-0.2) % Eos # (Auto) 0.03 L (0.04-0.54) x10^3/uL Immature Gran # (Auto) 0.05 H (0.001-0.031) x10^3u/L Absolute Lymphs (auto) 2.08 (1.32-3.57) x10^3/uL Absolute Monos (auto) 0.43 (0.30-0.82) x10^3/uL Absolute Nucleated RBC 0.00 (0.00-0.012) x10^3u/L Lymphocytes % 18.0 L (21.8-53.1) % Monocytes % 3.7 L (5.3-12.2) % Eosinophils % 0.3 L (0.8-7.0) % Basophils % 0.3 (0.2-1.2) % Absolute Granulocytes 8.92 H (1.78-5.38) x10^3/uL Basophils # 0.03 (0.01-0.08) x10^3/uL Sodium 133 L (135-145) mmol/L Potassium 4.2 (3.5-5.1) mmol/L Chloride 100 (98-107) mmol/L Carbon Dioxide 25 (22-30) mmol/L Anion Gap 12.2 (5-15) MEQ/L BUN 20 (9-20) mg/dL Creatinine 0.77 (0.66-1.25) mg/dL Estimated GFR 118.3 ML/MIN Glucose 328 H (74-106) mg/dL Calcium 9.4 (8.4-10.2) mg/dL Total Bilirubin 0.50 (0.2-1.3) mg/dL AST 32 (17-59) U/L ALT 48 (0-50) U/L Alkaline Phosphatase 79 (38-126) U/L Serum Total Protein 7.0 (6.3-8.2) g/dL Albumin 4.5 (3.5-5.0) g/dL - Progress Progress: improved Progress Note: 38-year-old male presents to our ED with a headache. Patient also complains of dizziness. Patient has history of diabetes untreated. Patient states he just got insurance and obtained his insulin for which he will start taking when he gets home. Patient's physical exam was unremarkable. Glucose 328. Anion gap within normal limits. Laboratory workup otherwise negative for emergent issues. Patient received IV fluids Compazine and Toradol. Headache resolved. Repeat neuroexam within normal limits. CT head negative for acute intracranial pathology. EKG performed secondary to patient's complaint of dizziness. EKG normal sinus rhythm. Patient currently asymptomatic requesting discharge and a work note. Patient agrees to follow-up with his primary care doctor within 48 hours. Patient declined management for his hyperglycemia in our ED other than the fluids he received. Patient will be discharged home per his request. Risks of not managing hyperglycemia and risks of not managing diabetes were discussed. Patient continues to decline additional treatment Portions of this note were created with voice recognition technology. There may be grammatical, spelling, punctuation or sound alike errors Complexity of problem addressed is moderate acute complicated no critical care time. Complex of data reviewed and analyzed is extensive. Test ordered test reviewed results analyzed and correlated clinically with history and physical exam. Risk of complication and or risk of morbidity/mortality of patient management is low. Vital stable. Time spent to discharge patient approximately 15 minutes. Plan of care established for shared decision making. No social determinants of health present to impede follow-up. Discharge blood glucose was 222 Portions of this note were created with voice recognition technology. There may be grammatical, spelling, punctuation or sound alike errors 04/25/24 06:19 04/25/24 06:24 Counseled pt/family regarding: lab results, diagnosis - Departure Departure Disposition: Home Clinical Impression: Headache, Hyperglycemia Condition: Stable Critical Care Time: No Referrals: DOCTOR,NO FAMILY [Primary Care Provider] - Follow up/PCP as directed KOREY URRUTIA MD [ACTIVE STAFF] - Follow up/PCP as directed Additional Instructions: Discharge/Care Plan EDWIGE WARD was seen on 04/25/24 in the Emergency Room. The patient was counseled regarding Diagnosis,Lab results, Imaging studies, need for follow up and when to return to the Emergency Room. Prescriptions given: Discharge Note I have spoken with the patient and/or caregivers. I have explained the patient's condition, diagnosis and treatment plan based on the information available to me at this time. I have answered the patient's and/or caregiver's questions and addressed any concerns. The patient and/or caregivers have as good understanding of the patient's diagnosis, condition and treatment plan as can be expected at this point. The vital signs have been stable. The patient's condition is stable and appropriate for discharge from the emergency department. The patient will pursue further outpatient evaluation with the primary care physician or other designated or consulting physician as outlined in the discharge instructions. The patient and/or caregivers are agreeable to this plan of care and follow-up instructions have been explained in detail. The patient and/or caregivers have received these instruction. The patient/and or caregivers are aware that any significant change in condition or worsening of symptoms should prompt an immediate return to this or the closest emergency department or call 911.
[2024-04-25] MEDS ORDERED: TORAdol 30 mg Injection ONE (03:03)
[2024-04-25] MEDS ORDERED: Compazine 10 MG/2 ML ONE (03:03)
[2024-04-25] MEDS ORDERED: Sodium Chloride 0.9% 1000 ML 1,000 ML ONE (03:04)
[2024-04-25] MEDS: TORAdol 30 mg Injection IV ONE (03:05)
[2024-04-25] MEDS: Compazine 10 MG/2 ML IV ONE (03:05)
[2024-04-25] MEDS: Sodium Chloride 0.9% 1000 ML 1,000 ML IV STA (03:05)
[2024-04-25 03:24] LABS: Absolute Neutrophil Ct (ANC) 8.92 x10^3/uL (1.78-5.38); BASOPHIL % 0.3 % (0.2-1.2); Basophil (Absolute #) 0.03 x10^3/uL (0.01-0.08); Eosinophil % 0.3 % (0.8-7.0); Eosinophil (Absolute #) 0.03 x10^3/uL (0.04-0.54); Hematocrit 41.9 % (40.1-51.0); Hemoglobin 14.9 g/dL (13.7-17.5); IMMATURE GRAN # 0.05 x10^3u/L (0.001-0.031); IMMATURE GRAN % 0.4 % (0.001-0.429); Lymphocyte (Absolute #) 2.08 x10^3/uL (1.32-3.57); Mean Cell Volume 93.1 fL (79.0-92.2); Mean Corpuscular Hemoglobin 33.1 pg (25.7-32.2); Mean Corpuscular Hgb Concent. 35.6 g/dL (32.3-36.5); Mean Platelet Volume 10.5 fL (9.4-12.4); Monocyte (Absolute #) 0.43 x10^3/uL (0.30-0.82); Monocytes % 3.7 % (5.3-12.2); Neutrophil % 77.3 % (34.0-67.9); Platelet Count 241 x10^3/uL (163-337); Red Cell Distribution Width 11.5 % (11.6-14.4); White Blood Count 11.5 x10^3/uL (4.23-9.07)
[2024-04-25 03:37] LABS: ALBUMIN 4.5 g/dL (3.5-5.0); ANION GAP 12.2 MEQ/L (5-15); BILIRUBIN,TOTAL 0.5 mg/dL (0.2-1.3); Calcium 9.4 mg/dL (8.4-10.2); Creatinine 1 0.77 mg/dL (0.66-1.25); EST GLOMERULAR FILTRATION RATE 118.3 ML/MIN; Potassium 4.2 mmol/L (3.5-5.1)
[2024-04-25 05:03] VITALS: RESP 13
[2024-04-25 06:03] VITALS: BP 124/69; PULSE 71
[2024-04-25 06:15] VITALS: O2SAT 97
--- NOTE | 2024-04-25 08:22 | XRAY ---
CLINICAL HISTORY: Headache COMPARISON: CT dated 06/24/2023. TECHNIQUE: An axial non-contrast CT scan of the brain was performed from the skull base to the high parietal region. One of the following dose reduction techniques were utilized for this exam: Automated exposure control, adjustment of the mA and/or kV according to patient size, use of iterative reconstruction. DLP: 1070.09 mGy-cm, CTDI: 53.92 m Gy. FINDINGS: Brain Parenchyma: Normal attenuation of the cerebral hemispheres, cerebellum, and brainstem. No evidence of hemorrhage, or mass effect. No abnormal areas of hypo- or hyperattenuation. Ventricular System: Ventricles are normal in size and configuration. No evidence of hydrocephalus or ventricular enlargement. Subarachnoid Spaces: Normal sulci and cisterns. No evidence of subarachnoid hemorrhage or extra-axial fluid collections. Sinuses: Clear paranasal sinuses. No evidence of sinusitis or mucosal thickening. Mastoid Air Cells: Clear mastoid air cells. No evidence of mastoiditis. Skull: Normal skull morphology. IMPRESSION: 1. No acute cerebral abnormality. 2. Unchanged study. Electronically Signed by: Benson Hernandez MD. (04/25/2024 04:03:28 EST)
== END 2024-04-25 06:32 | disposition home or self-care (01) ==
LOC: ED 02:16
DX: R51.9 Headache, unspecified (principal); E11.65 Type 2 diabetes mellitus with hyperglycemia; R42 Dizziness and giddiness
CPT/HCPCS: 36415; 70450; 80053; 82947; 85025; 93005; 96374; 96375; 99284; 99285; J1885

== ENCOUNTER 2024-06-04 07:03 | Emergency (ER) | payer BC ==
[2024-06-04 07:22] VITALS: RESP 20; TEMP 97.2; O2SAT 99
[2024-06-04 08:29] LABS: INFLUENZA A NEGATIVE (NEGATIVE); INFLUENZA B NEGATIVE (NEGATIVE); RESPIRATORY SYNCTIAL VIRUS NEGATIVE (NEGATIVE); SARS-CoV-2 Xpert Express NEGATIVE (NEGATIVE)
--- NOTE | 2024-06-04 09:05 | ERPHSYRPT ---
- History of Present Illness Historian: patient Patient Subjective Stated Complaint: Vomiting Triage Nursing Assessment: Patient ambulated back to ED and transferred self to bed. Patient A+O X3. Patient's skin pink, warm and dry. Patient states he vomitted X [address] work. 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 Patient denies pain or discomfort. Patient currently denies N/V or diarrhea. Patient states he just needs a work note for today. Physician History: Patient was going to work and had 1 episode of vomiting. Is better now. He does not have any abdominal pain. He is had no diarrhea. He had no fever or chills. Nothing makes symptoms better or worse. He is not nauseated anymore. He had a brief episode of nausea. He does not have any other complaints or symptoms at this time. Allergies/Adverse Reactions: Penicillins Allergy (Verified 06/04/24 07:16) Home Medications: No Reportable Medications [No Reported Medications] 04/25/24 [History] Hx Tetanus, Diphtheria Vaccination/Date Given: Yes Hx Influenza Vaccination/Date Given: No Hx Pneumococcal Vaccination/Date Given: No Immunizations Up to Date: Yes Travel Risk - International Travel Have you traveled outside of the country in past 3 weeks: No - Emerging Infectious Disease Are you exhibiting symptoms associated with any current EIDs: No Symptoms: Headaches/Body Aches/ - Review of Systems Constitutional: No Symptoms Eyes: No Symptoms Respiratory: No Symptoms Cardiac: No Symptoms Genitourinary Symptoms: No Symptoms All Other Systems: Reviewed and Negative - Past Medical History Pertinent Past Medical History: Yes Neurological History: No Pertinent History ENT History: No Pertinent History Cardiac History: No Pertinent History Respiratory History: Asthma Endocrine Medical History: Diabetes Type II Musculoskeletal History: No Pertinent History GI Medical History: No Pertinent History History: No Pertinent History Psycho-Social History: No Pertinent History Male Reproductive Disorders: No Pertinent History - Past Surgical History Past Surgical History: No Neuro Surgical History: No Pertinent History Cardiac: No Pertinent History Respiratory: No Pertinent History Gastrointestinal: No Pertinent History Genitourinary: No Pertinent History Musculoskeletal: No Pertinent History Male Surgical History: No Pertinent History - Social History Smoking Status: Former smoker How long have you smoked: 13 Y.O. Exposure to second hand smoke: No Drug Use: none - Social Determinants of Health Will the patient participate in the screening: Yes Do you worry about a steady place to live?: No Do you have any problems with any of the following?: No known problems In the past 12 months,have you had to go without utilities?: No Transportation Issues: No Has anyone in your support network made you feel unsafe?: No Have you or anyone in your house had to go w/o enough food: No - Nursing Vital Signs Nursing Vital Signs: Initial Vital Signs Temperature 97.2 F 06/04/24 07:17 Pulse Rate 87 06/04/24 07:17 Respiratory Rate 20 06/04/24 07:17 Blood Pressure 109/81 06/04/24 07:17 O2 Sat by Pulse Oximetry 99 06/04/24 07:17 Pain Scale Pain Intensity 0 - Physical Exam General Appearance: no apparent distress Eye Exam: PERRL/EOMI Respiratory Exam: normal breath sounds Cardiovascular Exam: regular rate/rhythm Gastrointestinal/Abdomen Exam: soft, normal bowel sounds, No tenderness, No distention SpO2: 99 Lab/Rad Data: Laboratory Results 06/04/24 Range/Units 07:33 Influenza Type A Ag NEGATIVE (NEGATIVE) Influenza Type B Ag NEGATIVE (NEGATIVE) RSV (PCR) NEGATIVE (NEGATIVE) SARS-CoV-2 (PCR) NEGATIVE (NEGATIVE) - Progress Progress Note: On the differential was gastroenteritis, flu, biliary colic. His exam was benign. He was completely better he has no symptoms at the probably does had episode of isolated vomiting for what ever reason. At this time I am going to let him go home. He does not want anything for the symptoms. He just wants a work note. 06/04/24 09:03 Medical Desision Making - Risk of complications Minimal Risk: Minimal risk of morbidity - Departure Departure Disposition: Home Clinical Impression: Vomiting Condition: Stable Critical Care Time: No Referrals: ILYA LEPE MD [Primary Care Provider] - Follow up/PCP as directed Instructions: Nausea and vomiting in adults - ED discharge instructions
[2024-06-04 09:09] VITALS: BP 103/69; PULSE 79
== END 2024-06-04 09:12 | disposition home or self-care (01) ==
LOC: ED 07:03
DX: R11.2 Nausea with vomiting, unspecified (principal); E11.9 Type 2 diabetes mellitus without complications
CPT/HCPCS: 0241U; 99283; 99282